=== PATIENT | male | born 1970 | race Caucasian/White ===

== ENCOUNTER 2017-05-05 20:26 | Emergency (ER) | payer OTHER ==
--- NOTE | 2017-05-05 21:42 | RAD ---
THREE VIEWS OF THE LEFT ANKLE 05/05/17 INDICATION: Left ankle injury. FINDINGS: No acute fracture or subluxation is evident. Ankle mortise and talar dome is preserved. There is sof t tissue swelling involving the distal foreleg and ankle. Visualized hindfoot appears within normal limits. IMPRESSION: 1. No acute osseous abnormality. 2. Soft tissue swelling of the left foreleg and ankle. POS: [facility]
== END 2017-05-05 21:25 | disposition home or self-care (01) ==
LOC: NAV ERS 20:26
DX: M25.571 Pain in right ankle and joints of right foot (principal); L20.9 Atopic dermatitis, unspecified; E78.5 Hyperlipidemia, unspecified; I10 Essential (primary) hypertension; Z87.891 Personal history of nicotine dependence

== ENCOUNTER 2017-11-22 10:34 | Emergency (ER) | payer OTHER ==
[2017-11-22] MEDS ORDERED: Mag-Al Plus 1200 MG/1200 MG/120 MG/30 ML UDCUP ONE (11:35)
[2017-11-22] MEDS ORDERED: Lidocaine Viscous Sol 2% 15 ml UD Cup ONE (11:35)
--- NOTE | 2017-11-22 12:29 | RAD ---
TWO VIEWS CHEST: HISTORY: Chest pain. COMPARISON: 04/02/2016 FINDINGS: Lungs are clear. Heart and mediastinum unremarkable. Osseous structures unremarkable. IMPRESSION: Unremarkable chest. POS: [facility]
== END 2017-11-22 12:32 | disposition home or self-care (01) ==
LOC: NAV ERS 10:34
DX: R10.13 Epigastric pain (principal); E78.5 Hyperlipidemia, unspecified; I10 Essential (primary) hypertension
CPT/HCPCS: 71046; 93005

== ENCOUNTER 2018-04-25 20:24 | Emergency (ER) | payer OTHER ==
--- NOTE | 2018-04-25 22:25 | RAD ---
RIGHT WRIST THREE VIEWS: INDICATIONS: Right wrist injury while breaking up a dog fight one hour ago. FINDINGS: There is soft tissue gas overlying the dorsal aspect of the wrist carpus, which is suspicious for a l aceration. No radiopaque foreign body is evident. No acute fracture is demonstrated. IMPRESSION: Soft tissue gas overlying the dorsal aspect of the right wrist, at the level of the wrist carpus, flavia picious for laceration. No radiopaque foreign body or acute osseous abnormality is demonstrated. POS: [facility]
== END 2018-04-25 21:14 | disposition home or self-care (01) ==
LOC: NAV ERS 20:24
DX: S51.851A Open bite of right forearm, initial encounter (principal); S51.811A Laceration without foreign body of right forearm, initial encounter; E78.5 Hyperlipidemia, unspecified; I10 Essential (primary) hypertension; Z23 Encounter for immunization; W54.0XXA Bitten by dog, initial encounter
CPT/HCPCS: 90471; 96372